=== PATIENT | female | born 1985 | race Two or more races ===

== ENCOUNTER 2020-08-14 08:45 | Inpatient (IN) | payer OTHER ==
[~2020-08-14] VITALS: Ht 154.9 cm; Wt 59.0 kg
[2020-08-14] MEDS ORDERED: SUPER B COMPLE1 EAC1 PO (10:44)
[2020-08-14] MEDS ORDERED: PROTONIX40 MG PO (10:44)
[2020-08-14] MEDS ORDERED: CENTRUM COMPLE1 EACH PO (10:45)
[2020-08-23] MEDS ORDERED: INTESTINEX680 M1 PO (11:16)
[2020-08-23] MEDS ORDERED: KETO10TA2 PO (11:16)
[2020-08-23] MEDS ORDERED: GABAPENTIN300 MG PO (11:16)
[2020-08-23] MEDS ORDERED: ULTRAM50 MG PO (11:17)
== END 2020-08-23 12:10 | disposition home or self-care (01) | DRG 331 ==
LOC: O/R 08-20 05:56 → SURH 08-20 05:56
PROVIDERS: ADMIT Surgery; ATTEND Surgery
PROC: 0DTP4ZZ Resection of Rectum, Percutaneous Endoscopic Approach (ICD-10-PCS; 2020-08-20)
PROC: 07TB4ZZ Resection of Mesenteric Lymphatic, Percutaneous Endoscopic Approach (ICD-10-PCS; 2020-08-20)
PROC: 0DTN4ZZ Resection of Sigmoid Colon, Percutaneous Endoscopic Approach (ICD-10-PCS; principal; 2020-08-20 07:00)
DX: C18.7 Malignant neoplasm of sigmoid colon (principal); N80.9 Endometriosis, unspecified

== ENCOUNTER 2020-10-08 07:51 | Day surgery (SDC) | payer OTHER ==
[~2020-10-08 07:51] MED LIST: CENTRUM COMPLE1 EACH PO; GABAPENTIN300 MG PO; INTESTINEX680 M1 PO; KETO10TA2 PO; PROTONIX40 MG PO; SUPER B COMPLE1 EAC1 PO; ULTRAM50 MG PO
== END 2020-10-08 14:45 | disposition home or self-care (01) ==
LOC: CIR.AMB 07:51
PROVIDERS: ATTEND Surgery
DX: C18.7 Malignant neoplasm of sigmoid colon (principal); Z20.822 Contact with and (suspected) exposure to COVID-19
CPT/HCPCS: 36561; C1751

== ENCOUNTER 2021-09-09 06:02 | Day surgery (SDC) | payer OTHER ==
[~2021-09-09] VITALS: Ht 152.4 cm; Wt 56.7 kg
[2021-09-09] MEDS ORDERED: ULTRAM50 MG PO (08:08)
== END 2021-09-09 09:45 | disposition home or self-care (01) ==
LOC: CIR.AMB 06:02
PROVIDERS: ATTEND Surgery
DX: Z45.2 Encounter for adjustment and management of vascular access device (principal); Z85.038 Personal history of other malignant neoplasm of large intestine; G62.89 Other specified polyneuropathies; Z20.822 Contact with and (suspected) exposure to COVID-19